=== PATIENT | female | born 1960 | race Caucasian/White ===

== ENCOUNTER → 2016-10-08 | Outpatient (CLI) | payer OTHER ==
--- NOTE | 2016-10-08 11:10 | DX ---
Bilateral hips, 2 views each side. History: Bilateral hip pain. Findings: Minimal joint space narrowing within both hips superiorly compatible with early osteoarthri tis. No fracture or dislocation. Symphysis pubis and sacroiliac joints appear benign. Impression: 1. Early bilateral hip degenerative changes.
== END ==
LOC: BRMIMAGING 08:53
PROVIDERS: ATTEND Internal Medicine
DX: M16.0 Bilateral primary osteoarthritis of hip (principal); M25.551 Pain in right hip; M25.552 Pain in left hip
CPT/HCPCS: 73521-PO